=== PATIENT | male | born 1970 | race Caucasian/White ===

== ENCOUNTER → 2016-12-26 | Outpatient (CLI) | payer OTHER | LOC: KOH-I 09:08 | DX: M54.17 Radiculopathy, lumbosacral region (principal); M51.16 Intervertebral disc disorders with radiculopathy, lumbar region; M48.06 Spinal stenosis, lumbar region; M51.87 Other intervertebral disc disorders, lumbosacral region; M99.73 Connective tissue and disc stenosis of intervertebral foramina of lumbar region; M99.74 Connective tissue and disc stenosis of intervertebral foramina of sacral region | CPT/HCPCS: 72148; 73721 ==

== ENCOUNTER → 2021-02-04 | Outpatient (CLI) | payer BC, OTHER ==
[~2021-02-04] MED LIST: PHENERGAN 25 MG25 M1 PO
== END ==
LOC: KOH-I 09:20
DX: M25.561 Pain in right knee (principal); S83.241A Other tear of medial meniscus, current injury, right knee, initial encounter; M94.261 Chondromalacia, right knee; M23.41 Loose body in knee, right knee; M25.461 Effusion, right knee; M67.863 Other specified disorders of tendon, right knee
CPT/HCPCS: 73721

== ENCOUNTER 2021-04-26 07:19 | Emergency (ER) | payer BC ==
[2021-04-26 08:28] LABS: HEMOGLOBIN 13.5 gm/dl (14.0-17.5); RED BLOOD COUNT 4.46 M/UL (4.20-5.50); WHITE BLOOD COUNT 10.5 K/UL (4.5-11.0)
[2021-04-26 09:01] LABS: BUN/CREATININE RATIO 21 (0-10)
[2021-04-26] MEDS ORDERED: PHENERGAN 25 MG25 M1 PO (10:18)
== END 2021-04-26 10:40 | disposition home or self-care (01) ==
LOC: ER1 07:19
PROVIDERS: Family Medicine
DX: R10.13 Epigastric pain (principal); R11.2 Nausea with vomiting, unspecified; I10 Essential (primary) hypertension; R07.9 Chest pain, unspecified; Z79.01 Long term (current) use of anticoagulants; Z79.899 Other long term (current) drug therapy; Z96.651 Presence of right artificial knee joint
CPT/HCPCS: 80053; 82550; 82553; 83690; 83874; 84484; 85025; 93005; 96374; 96375; 99284; J2405; J2550; J7030; Q9967

== ENCOUNTER → 2021-05-21 | Outpatient (CLI) | payer BC | LOC: US 10:30 | DX: M79.89 Other specified soft tissue disorders (principal) | CPT/HCPCS: 93971 ==

== ENCOUNTER 2021-07-14 10:48 | Emergency (ER) | payer BC ==
[~2021-07-14] VITALS: Ht 170.2 cm; Wt 72.6 kg
== END 2021-07-14 13:30 | disposition home or self-care (01) ==
LOC: ER1 10:48
DX: Z23 Encounter for immunization (principal); U07.1 COVID-19; I10 Essential (primary) hypertension; M19.90 Unspecified osteoarthritis, unspecified site
CPT/HCPCS: 99283; M0243